=== PATIENT | female | born 1965 | race Two or more races ===

== ENCOUNTER 2017-10-22 20:35 | Emergency (ER) | payer BC ==
[~2017-10-22] VITALS: Ht 149.9 cm; Wt 93.6 kg
[~2017-10-22 20:35] MED LIST: AMOXICILLIN500 M1 PO; LISINOPRIL10 MG PO; PEN-VEE K,VEET500 MG PO; TRAMADOL HCL50 MG PO; ULTRAM50 MG PO
[2017-10-22] MEDS ORDERED: PERCOCET 5/31 TABLET PO (22:01)
[2017-10-22] MEDS ORDERED: VALIUM5 MG PO (22:01)
[2017-10-22] MEDS ORDERED: MEDROL DOSEPAK4 MG PO (22:01)
[2017-10-22 22:24] VITALS: BP 206/123
== END 2017-10-22 22:25 | disposition home or self-care (01) ==
LOC: EME 20:35 → EXP 20:35
DX: M54.5 Low back pain (principal); M25.552 Pain in left hip; I10 Essential (primary) hypertension; Z87.891 Personal history of nicotine dependence
CPT/HCPCS: 99281; 99284